=== PATIENT | male | born 1940 | race African-American/Black ===

== ENCOUNTER 2018-02-25 21:17 | Emergency (ER) | payer MEDICARE ==
[~2018-02-25] VITALS: Ht 182.9 cm; Wt 81.6 kg
[~2018-02-25 21:17] MED LIST: ARICEPT5 MG ORAL; ASPIR 8181 MG ORAL; B-12500 MC2 SL; HYDRALAZINE HCL10 MG ORAL; LIPITOR40 MG ORAL; MELATONIN10 M1 ORAL; METFORMIN HCL500 M1 ORAL; MULTI-VITAMIN1 EACH PO; PRILOSEC OTC20 MG ORAL; VITAMIN D1000 UNI1 ORAL
[2018-02-25 21:23] VITALS: BP 199/95
[2018-02-25] MEDS ORDERED: Cefepime HCl 1 GM in NS 55 ML IV STA (21:25)
[2018-02-25] MEDS ORDERED: Vancomycin 1 GM in NS 275 ML IV ONE (21:30)
--- NOTE | 2018-02-25 21:48 | Emergency Room Report ---
History of Present Illness General Chief Complaint: Altered Mental Status Source: Family Member, EMS Present Illness HPI Patient presents with altered mentation. He normally has some dementia however he has less responsiveness according to his . They believe he might have a urinary tract infection and is on Cipro since Sunday. He also has a sacral decubitus which was evaluated by extension division director today. Allegedly, this is severe and "very bad;". states he has been unresponsive and not eating. The patient is unable to give us any history and is barely able to answer questions although he tracks with his eyes. He had diabetes. Glucose has been 120s. Initially paramedics stated he was a dialysis patient. states this is not correct - that he has kidney problems and never has had dialysis. Allergies: Coded Allergies: No Known Allergies (Unverified , 04/04/16) Patient History Limited by: medical condition Past Medical History: see triage record Social History: Denies: smoking, alcohol use, drug use Social History Narrative from home cares for him Reviewed Nursing Documentation: PMH: Agreed; PSxH: Agreed Nursing Documentation-PMH Hx Hypertension: Yes Hx Diabetes: Yes Hx Dialysis: Yes Review of Systems All Other Systems: limited Physical Exam Vital Signs Date Time Temp Pulse Resp B/P (MAP) Pulse Ox O2 Delivery O2 Flow Rate FiO2 02/25/18 21:13 62 16 151/84 99 Room Air Sp02 EP Interpretation: reviewed, normal General Appearance: lethargic, Chronically Ill Head: normocephalic Eyes: bilateral eye normal inspection, bilateral eye PERRL ENT: moist mucus membranes Neck: supple Respiratory: lungs clear, normal breath sounds Cardiovascular #1: regular rate, rhythm Cardiovascular #2: 2+ radial (R) Gastrointestinal: normal inspection, normal bowel sounds, non tender, no mass, non-distended Rectal: heme negative stool Genitourinary: no CVA tenderness Musculoskeletal: back normal, gait/station normal, normal range of motion Neurologic: responsive, motor strength/tone normal, DTRs symmetric, sensory intact, other - not speaking, eyes closed, no verbal response, withdraws to pain Psychiatric: depressed affect Skin: normal inspection, warm/dry, pallor, other - sacral decubitus stage 3 Medical Decision Making Diagnostic Impression: Primary Impression: Altered mental status Qualified Codes: R40.4 - Transient alteration of awareness Additional Impressions: Renal insufficiency Anemia Qualified Codes: D64.9 - Anemia, unspecified H/O UTI Sacral decubitus ulcer, stage III ER Course Patient presents with altered mentation and questionable infection. Differential includes sepsis, encephalopathy from another cause, electrolyte imbalance amongst others. Has a nonfocal neurologic exam at this time and CT is not indicated. Evaluation will be with EKG, chest x-ray and labs including urinalysis. Broader spectrum antibiotics have been ordered. EKG without injury. CXR no infiltrates or CHF. WBC normal. H/H low ( apparently in October hbg = 10) CMP with . Troponin neg. Elevated BNP. Lactate not elevated. With treatment patient gradually improved. states looks more like normal self. Discussed results with . Discussed with Dr. Estrada. Accepted to ED at [facility]. Laboratory Tests Test 02/25/18 21:40 White Blood Count 6.9 K/UL (4.8-10.8) Red Blood Count 3.03 M/UL (4.70-6.10) L Hemoglobin 8.8 G/DL (14.2-18.0) L Hematocrit 26.0 % (42.0-52.0) L Mean Corpuscular Volume 86 FL (80-99) Mean Corpuscular Hemoglobin 29.1 PG (27.0-31.0) Mean Corpuscular Hemoglobin Concent 33.9 G/DL (32.0-36.0) Red Cell Distribution Width 12.7 % (11.6-14.8) Platelet Count 157 K/UL (150-450) Mean Platelet Volume 8.7 FL (6.5-10.1) Neutrophils (%) (Auto) 55.3 % (45.0-75.0) Lymphocytes (%) (Auto) 33.0 % (20.0-45.0) Monocytes (%) (Auto) 8.0 % (1.0-10.0) Eosinophils (%) (Auto) 2.8 % (0.0-3.0) Basophils (%) (Auto) 0.9 % (0.0-2.0) Prothrombin Time 11.2 SEC (9.30-11.50) Prothrombin Time INR 1.1 (0.9-1.1) PTT 24 SEC (23-33) Urine Color Pale yellow Urine Appearance Slightly cloudy Urine pH 6 (4.5-8.0) Urine Specific [place] 1.005 (1.005-1.035) Urine Protein 1+ (NEGATIVE) H Urine Glucose (UA) Negative (NEGATIVE) Urine Ketones Negative (NEGATIVE) Urine Occult Blood Negative (NEGATIVE) Urine Nitrite Negative (NEGATIVE) Urine Bilirubin Negative (NEGATIVE) Urine Urobilinogen Normal MG/DL (0.0-1.0) Urine Leukocyte Esterase Negative (NEGATIVE) Urine RBC 0 /HPF (0 - 0) Urine WBC 2-4 /HPF (0 - 0) Urine Squamous Epithelial Cells Occasional /LPF Urine Bacteria Moderate /HPF (NONE) H Urine Mucus Few /LPF (NONE/OCC) H Sodium Level 139 MMOL/L (136-145) Potassium Level 3.7 MMOL/L (3.5-5.1) Chloride Level 106 MMOL/L (98-107) Carbon Dioxide Level 28 MMOL/L (21-32) Anion Gap 5 mmol/L (5-15) Blood Urea Nitrogen 21 mg/dL (7-18) H Creatinine 1.6 MG/DL (0.55-1.30) H Estimate Glomerular Filtration Rate mL/min (>60) Glucose Level 114 MG/DL (74-106) H Lactic Acid Level 1.30 mmol/L (0.4-2.0) Calcium Level 9.5 MG/DL (8.5-10.1) Phosphorus Level 3.6 MG/DL (2.5-4.9) Magnesium Level 2.1 MG/DL (1.8-2.4) Total Bilirubin 0.3 MG/DL (0.2-1.0) Aspartate Amino Transferase (AST) 29 U/L (15-37) Alanine Aminotransferase (ALT) 31 U/L (12-78) Alkaline Phosphatase 71 U/L (46-116) Total Creatine Kinase 52 U/L (26-308) Creatine Kinase MB 0.8 NG/ML (0.0-3.6) Creatine Kinase MB Relative Index 1.5 Troponin I 0.024 ng/mL (0.000-0.056) Pro-B-Type Natriuretic Peptide 1959 pg/mL (0-125) H Total Protein 7.3 G/DL (6.4-8.2) Albumin 3.5 G/DL (3.4-5.0) Globulin 3.8 g/dL Albumin/Globulin Ratio 0.9 (1.0-2.7) L EKG Diagnostic Results Rate: normal Rhythm: NSR ST Segments: no acute changes Rhythm Strip Diag. Results EP Interpretation: yes Rhythm: NSR, no PVC's, no ectopy Chest X-Ray Diagnostic Results Chest X-Ray Diagnostic Results : Chest X-Ray Ordered: Yes # of Views/Limited/Complete: 1 View Indication: Other Interpretation: no consolidation, no effusion, no pneumothorax, other - cabg Impression: Other Electronically Signed by: Electronically signed by Ruiz Franklin MD Last Vital Signs Date Time Temp Pulse Resp B/P (MAP) Pulse Ox O2 Delivery O2 Flow Rate FiO2 02/26/18 04:13 98.3 76 16 175/77 100 Room Air Status: improved Disposition: ER T-[facility] Condition: Serious Ruiz Franklin M.D. Feb 25, 2018 21:48
[2018-02-25 22:07] LABS: BASOPHILS % (AUTO) 0.9 % (0.0-2.0); EOSINOPHILS % (AUTO) 2.8 % (0.0-3.0); HEMOGLOBIN 8.8 G/DL (14.2-18.0); MEAN CORPUSCULAR VOLUME 86 FL (80-99); NEUTROPHILS % (AUTO) 55.3 % (45.0-75.0); PLATELET COUNT 157 K/UL (150-450); RED BLOOD COUNT 3.03 M/UL (4.70-6.10); RED CELL DISTRIBUTION WIDTH 12.7 % (11.6-14.8); WHITE BLOOD COUNT 6.9 K/UL (4.8-10.8)
[2018-02-25 22:13] LABS: APPEARANCE,URINE SLIGHTLY CLOUDY; BILIRUBIN, URINE NEGATIVE (NEGATIVE); COLOR,URINE PALE YELLOW; GLUCOSE, URINE (UA) NEGATIVE (NEGATIVE); KETONES,URINE NEGATIVE (NEGATIVE); LEUKOCYTE ESTERASE ,URINE NEGATIVE (NEGATIVE); NITRITE,URINE NEGATIVE (NEGATIVE); PH,URINE 6 (4.5-8.0); PROTEIN,URINE 1+ (NEGATIVE); UROBILINOGEN,URINE NORMAL MG/DL (0.0-1.0)
[2018-02-25 22:16] LABS: INR 1.1 (0.9-1.1)
[2018-02-25 22:26] LABS: ANION GAP 5 mmol/L (5-15); BLOOD UREA NITROGEN 21 mg/dL (7-18); CALCIUM 9.5 MG/DL (8.5-10.1); CARBON DIOXIDE 28 MMOL/L (21-32); CHLORIDE 106 MMOL/L (98-107); CREATININE 1.6 MG/DL (0.55-1.30); POTASSIUM 3.7 MMOL/L (3.5-5.1); SODIUM 139 MMOL/L (136-145)
[2018-02-25 22:47] VITALS: BP 183/137
[2018-02-25 22:58] LABS: ALANINE AMINOTRANSFERASE 31 U/L (12-78); ALBUMIN 3.5 G/DL (3.4-5.0); ALBUMIN/GLOBULIN RATIO 0.9 (1.0-2.7); ALKALINE PHOSPHATASE 71 U/L (46-116); ASPARTATE AMINO TRANSFERASE 29 U/L (15-37); BILIRUBIN,TOTAL 0.3 MG/DL (0.2-1.0); CKMB 0.8 NG/ML (0.0-3.6); CREATINE KINASE 52 U/L (26-308); PHOSPHORUS 3.6 MG/DL (2.5-4.9)
[2018-02-25 23:21] VITALS: BP 196/87
[2018-02-26 00:47] VITALS: BP 171/78
[2018-02-26] MEDS ORDERED: Sodium Chloride 500ML 550 ML IV SCH (02:15)
[2018-02-26 03:06] VITALS: BP 172/85
[2018-02-26 04:11] VITALS: BP 175/77
[2018-02-26 04:13] VITALS: BP 175/77
--- NOTE | 2018-02-26 11:10 | Diagnostic Imaging Report ---
Indication: Chest pain Technique: XRAY Chest 1v Comparison: 04/04/2016 Findings: Heart size and mediastinal contours are stable compared to the prior exam. There is no focal consolidation, pneumothorax or pleural effusion. Unchanged calcified granuloma in the left mid/upper lung. Osseous structures demonstrate no acute abnormality. Evidence of prior median sternotomy. Impression: No radiographic evidence of acute cardiopulmonary disease. Evidence of prior granulomatous disease. Stable cardiomegaly.
--- NOTE | 2018-02-26 14:09 | Cardiology Report ---
APPROVED REPORT EKG Measurement Heart [id number] Sinus rhythm with 1st degree AV block with premature atrial complexes Nonspecific ST and T wave abnormality Abnormal ECG
== END 2018-02-26 04:14 | disposition short-term general hospital (02) ==
LOC: EDBD 21:17 → EMR 22:11
DX: R41.82 Altered mental status, unspecified (principal); N28.9 Disorder of kidney and ureter, unspecified; D64.9 Anemia, unspecified; L89.153 Pressure ulcer of sacral region, stage 3; Z87.440 Personal history of urinary (tract) infections; E11.9 Type 2 diabetes mellitus without complications
CPT/HCPCS: 36415; 71045; 80053; 81003; 82550; 82553; 83605; 83735; 83880; 84100; 84484; 85025; 85610; 85730; 87040; 87086; 87181; 93005; 96361; 96365; 96367; 96368; 96375; 99284; J0360; J0692; J1956; J3370; J7040; J7050